=== PATIENT | female | born 1990 | race Caucasian/White ===

== ENCOUNTER 2019-11-04 09:43 | Emergency (ER) | payer SELFPAY ==
[~2019-11-04] VITALS: Ht 162.6 cm; Wt 61.4 kg
[~2019-11-04 09:43] MED LIST: NOCURR
[2019-11-04 09:45] VITALS: BP 117/78
[2019-11-04] MEDS: ACETAMINOPHEN 500 MG TABLET PO ONE ×2 (10:34→10:36)
[2019-11-04] MEDS: IBUPROFEN 600 MG TABLET PO ONE ×2 (10:34→10:36)
[2019-11-04] MEDS: AMOX TR/POT CLAV 875 MG/125 MG TABLET PO ONE ×2 (10:34→10:36)
[2019-11-04 11:10] LABS: GLUCOSE,POINT OF CARE 109 MG/DL (70-110)
== END 2019-11-04 10:30 | disposition left against medical advice (07) ==
LOC: EDUNIT# 09:43 → EMS 09:51
DX: K02.9 Dental caries, unspecified (principal); F12.90 Cannabis use, unspecified, uncomplicated; F15.90 Other stimulant use, unspecified, uncomplicated